=== PATIENT | female | born 1970 | race Caucasian/White ===

== ENCOUNTER 2018-06-29 18:17 | Inpatient (IN) | payer OTHER, SELFPAY ==
[2018-06-29 18:18] VITALS: BP 118/80; PULSE 87; RESP 14; TEMP 36.4; O2SAT 99; BMI 31.6
--- NOTE | 2018-06-29 18:43 | US_ITS ---
STUDY: VENOUS DOPPLER ULTRASOUND - BILATERAL LOWER EXTREMITIES REASON FOR EXAM: Female, 48 years old. Left posterior knee and calf pain and swelling. TECHNIQUE: Ultrasound evaluation of the deep vein system to include hsu-scale imaging and compression was performed. Hsu-scale imaging and Doppler sonographic evaluation, including duplex spectral analysis and qualitative color flow sonography, was performed. COMPARISON: None. FINDINGS: RIGHT LEG Common Femoral Vein: Normal compression, spontaneity and augmentation. Normal color Doppler. Common Femoral Vein/Greater Saphenous Junction: Normal compression, spontaneity and augmentation. Normal color Doppler. Deep Femoral Vein: Normal compression, spontaneity and augmentation. Normal color Doppler. Femoral Proximal: Normal compression, spontaneity and augmentation. Normal color Doppler. Femoral Middle: Normal compression, spontaneity and augmentation. Normal color Doppler. Femoral Distal: Normal compression, spontaneity and augmentation. Normal color Doppler. Popliteal Vein: Normal compression, spontaneity and augmentation. Normal color Doppler. Posterior Tibial Vein: Normal compression. Peroneal Vein: Normal compression. LEFT LEG Common Femoral Vein: Normal compression, spontaneity and augmentation. Normal color Doppler. Common Femoral Vein/Greater Saphenous Junction: Normal compression, spontaneity and augmentation. Normal color Doppler. Deep Femoral Vein: Normal compression, spontaneity and augmentation. Normal color Doppler. Femoral Proximal: Normal compression, spontaneity and augmentation. Normal color Doppler. Femoral Middle: Normal compression, spontaneity and augmentation. Normal color Doppler. Femoral Distal: Normal compression, spontaneity and augmentation. Normal color Doppler. Popliteal Vein: There is a echogenic noncompressible focus with no associated Doppler flow system with an underlying thrombus. Posterior Tibial Vein: There is an echogenic noncompressible focus consistent with underlying thrombus. Peroneal Vein: There is an echogenic noncompressible focus consistent with an underlying thrombus. The lesser saphenous vein is thrombosed as well. US/Venous Duplex Imag/Martín Extrem IMPRESSION: Thrombosed LEFT popliteal, posterior tibial, peroneal and lesser saphenous veins. Electronically Signed: Lauren Escobar MD at 19:44 EDT Tel , Service support ,
--- NOTE | 2018-06-29 19:36 | CT_ITS ---
STUDY: CTA CHEST REASON FOR EXAM: Female, 48 years old. Known blood clots. RADIATION DOSAGE (If Supplied By Facility): CTDIvol = ( 21.10 ) mGy, DLP = ( 727.74 ) mGycm TECHNIQUE: The examination was performed with the intravenous administration of 100 ml of Isovue 370 contrast material. Post-processing of the angiographic images was performed, with multiplanar reformation and 3D reconstruction. Individualized dose optimization techniques were used for this CT. COMPARISON: None. FINDINGS: There are filling defects within the left and right pulmonary arteries consistent with pulmonary emboli within appearance consistent with saddle emboli. The emboli extend into segmental and subsegmental arteries throughout the lungs. There is atherosclerotic calcification of the aortic arch . There is no demonstrated aortic dissection. Normal heart and pericardium. Normal mediastinum. Normal hilar regions. Normal visualized trachea and bronchi. There is a right pleural effusion associated with dependent consolidation within the right lower lobe. Normal chest wall structures. Normal osseous structures. The limited images of the upper abdomen demonstrate a right renal cyst. CT/CTA Chest W/WO Contrast IMPRESSION: Bilateral pulmonary emboli. Right pleural effusion associated with dependent consolidation within the right lower lobe. Right renal cyst. N.B. : The above information has been verbally conveyed by Lauren Escobar MD to Dr. León Bui MD, on 06/29/2018 21:31:34 (ET). Electronically Signed: Lauren Escobar MD at 21:32 EDT Tel , Service support ,
--- NOTE | 2018-06-29 19:55 | ED.VISSUMM ---
- ER Visit Summary Date of Service: 06/29/18 Chief Complaint: Left leg swelling History of Present Illness: The patient is a 48 F who about 1 month ago broke her left ankle. She has been in a boot orthosis has been seeing [facility] foot and ankle. She states that about a week ago she developed a lot of swelling in the leg. She notes that over the last weekend she had shortness of breath on the right side. She has no known history of clotting disorder. She denies any current chest pain or shortness of breath. She notes discomfort in the calf. Physical Examination: Afebrile vital signs are stable Gen: Well-nourished well-developed Head: Normocephalic atraumatic Eyes: Perrl EOMI ENT: TMs clear no rhinorrhea moist mucous membranes Neck: Supple no lymphadenopathy no JVD nontender CVS: Regular rate rhythm no murmurs normal S1-S2 Respiratory: No distress clear to auscultation bilaterally chest nontender Abdomen: Soft nontender nondistended normal bowel sounds no masses Back: Nontender Extremity: Left calf is swollen. Musculature is tender to palpation. I do not appreciate cords. Skin: Normal color no rash Neuro: alert orientated ?3 CN II-XII intact normal strength sensation reflexes gait cerebellar Psych: Normal affect normal mood Test Results: Duplex ultrasound is positive for DVT. CBC BMP troponin EKG were obtained and negative. CT [place] of the chest demonstrated a saddle pulmonary embolism. Emergency Department Course and Treatment: Patient is surprisingly asymptomatic probably due to flow around the clot. Plan is admission on a heparin drip echocardiogram. Impression: 1. Pulmonary embolism 2. Left leg DVT This note was generated with [employer] dictation software. It may contain incorrect words, spelling, and punctuation that were not noted in review of the chart prior to signing ED Disposition - Plan for ED Patient: Chief Complaint: Lower Extremity Injury Referrals: [facility] Doctor,Out of [Primary Care Provider] -
[2018-06-29 20:13] LABS: Absolute Lymphocyte Count 2.73 X10^3/ul (0.83-4.51); Absolute Neutrophil Count 5.3 X10^3/uL (2.0-7.7); Basophil# 0.02 X10^3/uL; Basophil% 0.2 % (0-1); Eosinophil# 0.23 X10^3/uL; Eosinophils% 2.6 % (0-5); Hematocrit 34.4 % (37-47); Hemoglobin 11.3 g/dl (12.0-15.0); Lymphocyte # 2.73 X10^3/ul (4.0); Lymphocyte % 30.4 % (19-41); Mean Corp Hgb Conc 32.8 g/gl (32-36); Mean Corpuscular Hgb 31.1 pg (27.0-32.0); Mean Corpuscular Volume 94.8 fL (81-99); Mean Platelet Vol. 8.9 fl (6.2-12.0); Monocyte# 0.73 X10^3/uL; Monocyte% 8.1 % (0-10); Neutrophil # 5.27 X10^3/uL (2.7-7.7); Neutrophil % 58.6 % (47-70); Platelet Count 345 K/mm3 (150-450); RBC Distribution Width CV 13.5 % (11.6-14.6); Red Blood Count 3.63 M/mm3 (4.2-5.4)
[2018-06-29 20:17] LABS: POSITIVE COUNT NO; POSITIVE DIFFERENTIAL NO; POSITIVE MORPHOLOGY NO
[2018-06-29 20:29] LABS: Anion Gap 4 (5-15); BUN 14 mg/dL (7-18); BUN/Creat Ratio 18.8 RATIO (10-20); Calcium,Total 8.9 mg/dL (8.5-10.1); Chloride 104 mmol/L (98-107); Creatinine, Serum 0.74 mg/dL (0.55-1.02); EST Glomerular Filtration Rate 89 mL/min (>60); Est Glom Filt Rate - Afr Amer 108 mL/min (>60); Estimated Creatinine Clearance 85.48 ml/min; Glucose 83 mg/dL (74-106); Potassium 4.3 mmol/L (3.5-5.1); Sodium Level 138 mmol/L (136-145)
--- NOTE | 2018-06-29 22:19 | EKG12_ITS ---
Test Reason : Blood Pressure : / mmHG Vent. Rate : 078 BPM Atrial Rate : 078 BPM P-R Int : 142 ms QRS Dur : 084 ms QT Int : 386 ms P-R-T Axes : 042 044 021 degrees QTc Int : 440 ms Normal sinus rhythm Normal ECG Confirmed by CYNTHIA VANESSA, SHORTY ([id number]), editorial cartoonist VIDA FAM ([id number]) on 07/03/2018 3:57:59 PM Referred By: SHAUN Confirmed By:SHORTY MARIE MD
--- NOTE | 2018-06-29 22:29 | PCM.HP.STD ---
Problem List (1) Bilateral pulmonary embolism Status: Acute (2) DVT (deep venous thrombosis) Status: Acute History of Present Illness Date of Admission: 06/29/18 Chief Complaint: LEG PAIN AND SHORTNESS OF BREATH The patient is a 48 year old F with a significant history of anxiety and depression; and who had left ankle and left leg fracture about a month ago and in orthotic boots and uses clutches; presenting with left calf pain and swelling that began about a week ago. Patient reported at rest she has no pain in her left ankle but with ambulation she has pain which she rates as 10 out of 10. Patient saw her orthopedic doctor today and she was advised to come to the emergency department since the orthopedic doctor was suspicious of a blood clot. Associated with her symptoms is episodic shortness of breath. She had multiple episodes shortness of breath a few days ago. At the time of my examination she did not have any shortness of breath. She reports pain in her chest with taking a deep breath. Venous Duplex at emergency department showed thrombosed left popliteal, posterior tibial, peroneal and lesser saphenous vein. CTA of the chest showed bilateral pulmonary emboli; with right pleural effusion associated with dependent consolidation within the right lower lobe; and right renal cyst. ED doctor consulted Dr. Abdullahi; composition molder and a decision was made to admit the patient and to start patient on anticoagulation. Per emergency department doctor Dr. Abdullahi composition molder is okay to be consulted further if need be. Past Medical History Allergies No Known Allergies Allergy (Verified 06/29/18 18:31) Home Medications: Ambulatory Orders Medication Instructions Recorded Sertraline HCl [Zoloft] 50 mg PO DAILY 06/29/18 traMADol [Ultram] 50 mg PO 4X/DAY PRN PRN 06/29/18 Surgical History: hysterectomy, tonsillectomy, - - Nose surgery Psychiatric History: Anxiety, Depression Lives: With Family Smoking Status: Never smoker Alcohol: Occasional - *Family History Maternal Family History: Family History (Last Updated 06/29/18 @ 23:17 by Luis A Marcos MD) Father Diabetes Aneurysm of gastric artery Heart problem Brother Heart problem Mother Thyroid disorder Review of Systems Constitutional: Denies: Chills, Fever, Weight Change HEENT: Denies: Head Aches, Sinus Congestion, Sinus Drainage Cardiovascular: Reports: Chest Pain - With deep breath. Denies: Palpitations Respiratory: Reports: Shortness of Breath. Denies: Cough, Shortness of breath at rest, Sputum production Gastrointestinal: Denies: Abdominal Pain, Nausea, Vomiting Genitourinary: Denies: Dysuria Musculoskeletal: Reports: Foot Pain - Left foot, Leg Pain - Left leg, Muscle pain - Left calf. Denies: Joint Pain, Joint Tenderness Skin: Denies: Rash, Wounds Neurological: Denies: Numbness, Tingling, Focal weakness Psychiatric: Denies: Anxiety, Depression, Homicidal Ideations, Suicidal Ideations Hematologic/ Lymphatic: Denies: Easy Bruising, Easy Bleeding VTE Information - Inpt Only VTE Present on Admission: Yes VTE Mechan Device Prophylaxis: None VTE Pharm Prophylaxis ordered?: No Reason prophylaxis not ordered:: Treatment Not Indicated - Started on treatment dose of anticoagulation Patient Problems: Active and Suspected Problems Bilateral pulmonary embolism (Acute) DVT (deep venous thrombosis) (Acute) - Physical Exam General: Alert, Oriented x3, Cooperative HEENT: Atraumatic, PERRLA, EOMI, Normocephalic Neck: Supple, No JVD, Negative Carotid Bruits Lungs: Clear to auscultation, Normal air movement Cardiovascular: Regular rate, No murmurs Abdomen: Bowel Sounds Present, Soft, Non Tender Extremities: Capillary Refill Less than 3 Seconds, Edema - Left leg, Tenderness - Left cough Skin: No rashes, No breakdown Musculoskeletal: No Tenderness to Palpation of Joints or Extremities Neurological: Cranial nerves II-XII grossly intact Psych/Mental Status: Normal Affect, Appropriate Vital Signs Temp Pulse Resp BP Pulse Ox 97.5 F L 87 14 118/80 99 06/29/18 18:18 06/29/18 18:18 06/29/18 18:18 06/29/18 18:18 06/29/18 18:18 Oxygen Delivery Method Room Air Weight: 86.183 kg Body Mass Index (BMI) 31.6 Laboratory Tests Past 24 Hrs 06/29/18 06/29/18 19:50 19:50 WBC 9.0 RBC 3.63 L Hgb 11.3 L Hct 34.4 L MCV 94.8 MCH 31.1 MCHC 32.8 RDW 13.5 RDW Differential 47.0 H Plt Count 345 MPV 8.9 Immature Gran % (Auto) 0.100 Neut % (Auto) 58.6 Lymph % (Auto) 30.4 Terry % (Auto) 8.1 Eos % (Auto) 2.6 Baso % (Auto) 0.2 Absolute Neuts (auto) 5.3 Absolute Lymphs (auto) 2.73 Total Counted Not Reportable Sodium 138 Potassium 4.3 Chloride 104 Carbon Dioxide 30.0 Anion Gap 4 L BUN 14 Creatinine 0.74 Estim Creat Clear Calc 85.48 Est GFR (MDRD) Af Amer 108 Est GFR (MDRD) Non-Af 89 BUN/Creatinine Ratio 18.8 Glucose 83 Calcium 8.9 Assessment/Plan All Active Problems Bilateral pulmonary embolism (Acute) DVT (deep venous thrombosis) (Acute) The patient is a 48 year old F with a significant history of anxiety and depression; and who had left ankle and left leg fracture about a month ago and in orthotic boots and uses clutches; presenting with left calf pain and swelling; and with episodic shortness of breath and pleuritic chest pain found to have radiographic evidence of bilateral PE; and multiple DVT and SVT in her left leg. Bilateral pulmonary embolism with DVT in multiple veins of left leg. Independent review of CT showed multiple bilateral PEs. Venous Dopplers with DVT in multiple veins of left leg. PESI score is 46; low risk of mortality. Emergency department doctor ordered heparin bolus with drip. We will continue heparin drip for now. Anticipate patient will be transitioned to direct oral anticoagulation next day and be discharged home. Echocardiogram not ordered because patient is hemodynamically stable. Home Tramadol continued. Anxiety with depression Home Zoloft continued. Renal cysts Independent review of CT showed right-sided renal cyst. Patient to follow-up outpatient Left ankle fracture and left fracture. Patient to continue left orthotic boots and clutches; and to follow up outpatient with orthopedic surgeon. DVT prophylaxis Not indicated in the setting of patient being started on treatment dose for thromboembolism. Code Visit OBSV E&M: 08795 Initial observation care L3
[2018-06-29] MEDS: HEPARIN/D5w 25,000 UNITS 25,000 UNITS/250 ML IV.SOLN. 12 UNITS IV (22:56)
[2018-06-29] MEDS: Heparin Injection (Vial) 5,000 UNIT/ML VIAL 6000 UNIT IV (22:56)
[2018-06-29 22:59] LABS: International Normalized Ratio 1.2; Prothrombin Time (Protime)PT. 14.7 SECONDS (11.7-14.9)
[2018-06-29 23:00] LABS: Partial Thromboplast Time 36.4 Seconds (24.1-36.2)
[2018-06-29 23:02] VITALS: BP 131/70; PULSE 87; RESP 18; O2SAT 98
[2018-06-29 23:06] LABS: AST(SGOT) 38 U/L (15-37); Alanine Aminotransfer ALT/SGPT 27 U/L (13-56); Albumin, Serum 3.1 g/dL (3.2-5.0); Alkaline Phosphatase 89 U/L (45-117); Bilirubin, Direct 0.08 mg/dL (0.00-0.30); Protein, Total 9.1 g/dL (6.4-8.2)
[2018-06-29 23:45] VITALS: BP 138/69; PULSE 83; RESP 16; TEMP 36.9; O2SAT 97
[2018-06-29 23:46] VITALS: BMI 31.0
[2018-06-29 23:58] VITALS: PULSE 80
[2018-06-30] VITALS (11 sets, daily range): BP systolic 107–142; BP diastolic 66–80; PULSE 68–88; RESP 16; TEMP 36.6–37.1; O2SAT 95–98; BMI 31.1
[2018-06-30 06:03] LABS: Absolute Lymphocyte Count 2.88 X10^3/ul (0.83-4.51); Basophil# 0.02 X10^3/uL; Basophil% 0.3 % (0-1); Eosinophil# 0.22 X10^3/uL; Eosinophils% 2.8 % (0-5); Hematocrit 32.7 % (37-47); Hemoglobin 10.7 g/dl (12.0-15.0); Lymphocyte # 2.88 X10^3/ul (4.0); Lymphocyte % 37.1 % (19-41); Mean Corp Hgb Conc 32.7 g/gl (32-36); Mean Corpuscular Volume 94.8 fL (81-99); Mean Platelet Vol. 8.7 fl (6.2-12.0); Monocyte# 0.63 X10^3/uL; Monocyte% 8.1 % (0-10); Neutrophil % 51.6 % (47-70); Platelet Count 344 K/mm3 (150-450); RBC Distribution Width CV 13.3 % (11.6-14.6); RBC Distribution Width SD 44.3 fl (35.1-43.9); Red Blood Count 3.45 M/mm3 (4.2-5.4); White Blood Count 7.8 K/mm3 (4.4-11.0)
[2018-06-30 06:04] LABS: POSITIVE COUNT NO; POSITIVE DIFFERENTIAL NO; POSITIVE MORPHOLOGY NO
[2018-06-30 06:09] LABS: Partial Thromboplast Time 106.8 Seconds (24.1-36.2)
[2018-06-30] MEDS: 0.9% NaCl Peripheral Flush Adult/Peds IV (06:13)
--- NOTE | 2018-06-30 07:51 | PCM.PROGNOTE ---
Patient Problems: Active and Suspected Problems Bilateral pulmonary embolism (Acute) DVT (deep venous thrombosis) (Acute) Subjective: Chief complaint: Follow-up after admission for acute bilateral pulmonary emboli/saddle embolism, acute left lower extremity DVT and probable right lower lobe community-acquired pneumonia. Patient seen and examined. No acute events overnight. She mentioned that her breathing is better, no more left leg pain. She does state that last weekend, she had an episode of right lateral chest pain and productive cough. She had a fracture of her left ankle and left fibula around a month ago that was treated with Aircast. Her vital signs are stable. - Physical Exam General: Alert, Oriented x3, Cooperative, No apparent distress HEENT: Atraumatic, PERRLA, EOMI, Normocephalic Oral: Moist Mucosa Neck: Supple, No JVD, Trachea Midline, Thyroid Normal Size and Texture Lungs: No rhonchi, No wheeze, No rales, Diminished, - - Decreased breath sounds at the right base, otherwise clear. Cardiovascular: Regular rate, Regular Rhythm, Normal S1, Normal S2, PMI Normal Abdomen: Bowel Sounds Present, Soft, Non Tender, Non-Distended, No Hepato-splenomegaly Extremities: No clubbing, No cyanosis, No edema, - - Left leg is swollen up to the left knee. Skin: No rashes, No breakdown Lymphatic: No Cervical, Supraclavicular, or Inguinal Adenopathy Neurological: Cranial nerves II-XII grossly intact, Motor Exam 5/5 strength throughout Psych/Mental Status: Normal Affect, Appropriate, Alert and oriented to time, place, person, mood and affect Vital Signs Temp Pulse Resp BP Pulse Ox 97.8 F 68 16 107/66 96 06/30/18 05:45 06/30/18 07:15 06/30/18 05:45 06/30/18 05:45 06/30/18 06:40 Oxygen Delivery Method Room Air Weight: 186 lb 11.704 oz Body Mass Index (BMI) 31.0 Intake and Output for Last 24 Hours 06/28/18 06/29/18 06/30/18 23:59 23:59 23:59 Intake Total 278.9 / 278.9 Balance 278.9 / 278.9 Laboratory Tests Past 24 Hrs 06/29/18 06/29/18 06/29/18 19:50 19:50 19:50 WBC 9.0 RBC 3.63 L Hgb 11.3 L Hct 34.4 L MCV 94.8 MCH 31.1 MCHC 32.8 RDW 13.5 RDW Differential 47.0 H Plt Count 345 MPV 8.9 Immature Gran % (Auto) 0.100 Neut % (Auto) 58.6 Lymph % (Auto) 30.4 [place] % (Auto) 8.1 Eos % (Auto) 2.6 Baso % (Auto) 0.2 Absolute Neuts (auto) 5.3 Absolute Lymphs (auto) 2.73 Total Counted Not Reportable PT INR APTT Sodium 138 Potassium 4.3 Chloride 104 Carbon Dioxide 30.0 Anion Gap 4 L BUN 14 Creatinine 0.74 Estim Creat Clear Calc 85.48 Est GFR (MDRD) Af Amer 108 Est GFR (MDRD) Non-Af 89 BUN/Creatinine Ratio 18.8 Glucose 83 Calcium 8.9 Total Bilirubin 0.40 Direct Bilirubin 0.08 AST 38 H ALT 27 Alkaline Phosphatase 89 Total Protein 9.1 H Albumin 3.1 L Globulin 6.0 H 06/29/18 06/30/18 06/30/18 22:40 05:05 05:05 WBC 7.8 RBC 3.45 L Hgb 10.7 L Hct 32.7 L MCV 94.8 MCH 31.0 MCHC 32.7 RDW 13.3 RDW Differential 44.3 H Plt Count 344 MPV 8.7 Immature Gran % (Auto) 0.100 Neut % (Auto) 51.6 Lymph % (Auto) 37.1 [place] % (Auto) 8.1 Eos % (Auto) 2.8 Baso % (Auto) 0.3 Absolute Neuts (auto) 4.0 Absolute Lymphs (auto) 2.88 Total Counted Not Reportable PT 14.7 INR 1.2 APTT 36.4 H 106.8 H* Sodium Potassium Chloride Carbon Dioxide Anion Gap BUN Creatinine Estim Creat Clear Calc Est GFR (MDRD) Af Amer Est GFR (MDRD) Non-Af BUN/Creatinine Ratio Glucose Calcium Total Bilirubin Direct Bilirubin AST ALT Alkaline Phosphatase Total Protein Albumin Globulin Clinical Impression(s) from Imaging Studies Venous Duplex 06/29/18 18:43 IMPRESSION: Thrombosed LEFT popliteal, posterior tibial, peroneal and lesser saphenous veins. Electronically Signed: Lauren Escobar MD at 19:44 EDT Tel , Service support , Chest CTA 06/29/18 19:36 IMPRESSION: Bilateral pulmonary emboli. Right pleural effusion associated with dependent consolidation within the right lower lobe. Right renal cyst. N.B. : The above information has been verbally conveyed by Lauren Escobar MD to Dr. León Bui MD, on 06/29/2018 21:31:34 (ET). Electronically Signed: Lauren Escobar MD at 21:32 EDT Tel , Service support , Medical Necessity - Tobacco Use Smoking Status: Never smoker Assessment/Plan All Active Problems Bilateral pulmonary embolism (Acute) DVT (deep venous thrombosis) (Acute) This is a 48 years old female patient presented to the emergency room because of left leg swelling and shortness of breath and she was found to have acute bilateral pulmonary emboli with saddle embolism as well as extensive acute DVT of the left lower extremity and probable right lower lobe community-acquired pneumonia. #1 acute multiple bilateral pulmonary emboli/saddle embolism: This is considered provoked because she had recent history of left ankle/left fibula fracture and she has been nonweightbearing to the left leg. She denied personal or family history of clotting disorders. She is on IV heparin drip. No indication for hypercoagulable workup. Her vital signs are stable. Her routine blood work was remarkable for hemoglobin of 10.7 g/dL, otherwise normal. CTA chest reviewed. Plan: Continue IV heparin drip, start oral Xarelto tomorrow morning after discontinue IV heparin drip, repeat CBC and INR tomorrow morning. #2 acute left lower extremity DVT: Again, she is on IV heparin drip and this is provoked with because of left ankle/left tibial fracture. Plan as above. #3 probable right lower lobe community-acquired pneumonia: CTA chest revealed small right pleural effusion and probable consolidation. Patient reported cough with some colored sputum. Denies fever chills. She has no leukocytosis, afebrile. Plan to start IV Levaquin empiric. #4 recent history of left ankle/left fibular fracture: Tylenol as needed for pain, Aircast. #5 anxiety/depression: Continue Zoloft. #6 DVT prophylaxis: She is on IV heparin drip. This note was generated with [employer] dictation software. It may contain incorrect words, spelling, and punctuation that were not noted in checking the note before signing. Code Visit Inpatient E&M: 10624 Subs Hosp L2
--- NOTE | 2018-06-30 07:57 | PN_ITS ---
Patient Problems: Active and Suspected Problems Bilateral pulmonary embolism (Acute) DVT (deep venous thrombosis) (Acute) Subjective: Chief complaint: Follow-up after admission for acute bilateral pulmonary emboli/saddle embolism, acute left lower extremity DVT and probable right lower lobe community-acquired pneumonia. Patient seen and examined. No acute events overnight. She mentioned that her breathing is better, no more left leg pain. She does state that last weekend, she had an episode of right lateral chest pain and productive cough. She had a fracture of her left ankle and left fibula around a month ago that was treated with Aircast. Her vital signs are stable. - Physical Exam General: Alert, Oriented x3, Cooperative, No apparent distress HEENT: Atraumatic, PERRLA, EOMI, Normocephalic Oral: Moist Mucosa Neck: Supple, No JVD, Trachea Midline, Thyroid Normal Size and Texture Lungs: No rhonchi, No wheeze, No rales, Diminished, - - Decreased breath sounds at the right base, otherwise clear. Cardiovascular: Regular rate, Regular Rhythm, Normal S1, Normal S2, PMI Normal Abdomen: Bowel Sounds Present, Soft, Non Tender, Non-Distended, No Hepato- splenomegaly Extremities: No clubbing, No cyanosis, No edema, - - Left leg is swollen up to the left knee. Skin: No rashes, No breakdown Lymphatic: No Cervical, Supraclavicular, or Inguinal Adenopathy Neurological: Cranial nerves II-XII grossly intact, Motor Exam 5/5 strength throughout Psych/Mental Status: Normal Affect, Appropriate, Alert and oriented to time, place, person, mood and affect Vital Signs Temp Pulse Resp BP Pulse Ox 97.8 F 68 16 107/66 96 06/30/18 05:45 06/30/18 07:15 06/30/18 05:45 06/30/18 05:45 06/30/18 06:40 Oxygen Delivery Method Room Air Weight: 186 lb 11.704 oz Body Mass Index (BMI) 31.0 Intake and Output for Last 24 Hours 06/28/18 06/29/18 06/30/18 23:59 23:59 23:59 Intake Total 278.9 / 278.9 Balance 278.9 / 278.9 Laboratory Tests Past 24 Hrs 06/29/18 06/29/18 06/29/18 19:50 19:50 19:50 WBC 9.0 RBC 3.63 L Hgb 11.3 L Hct 34.4 L MCV 94.8 MCH 31.1 MCHC 32.8 RDW 13.5 RDW Differential 47.0 H Plt Count 345 MPV 8.9 Immature Gran % (Auto) 0.100 Neut % (Auto) 58.6 Lymph % (Auto) 30.4 Dawes % (Auto) 8.1 Eos % (Auto) 2.6 Baso % (Auto) 0.2 Absolute Neuts (auto) 5.3 Absolute Lymphs (auto) 2.73 Total Counted Not Reportable PT INR APTT Sodium 138 Potassium 4.3 Chloride 104 Carbon Dioxide 30.0 Anion Gap 4 L BUN 14 Creatinine 0.74 Estim Creat Clear Calc 85.48 Est GFR (MDRD) Af Amer 108 Est GFR (MDRD) Non-Af 89 BUN/Creatinine Ratio 18.8 Glucose 83 Calcium 8.9 Total Bilirubin 0.40 Direct Bilirubin 0.08 AST 38 H ALT 27 Alkaline Phosphatase 89 Total Protein 9.1 H Albumin 3.1 L Globulin 6.0 H 06/29/18 06/30/18 06/30/18 22:40 05:05 05:05 WBC 7.8 RBC 3.45 L Hgb 10.7 L Hct 32.7 L MCV 94.8 MCH 31.0 MCHC 32.7 RDW 13.3 RDW Differential 44.3 H Plt Count 344 MPV 8.7 Immature Gran % (Auto) 0.100 Neut % (Auto) 51.6 Lymph % (Auto) 37.1 Dawes % (Auto) 8.1 Eos % (Auto) 2.8 Baso % (Auto) 0.3 Absolute Neuts (auto) 4.0 Absolute Lymphs (auto) 2.88 Total Counted Not Reportable PT 14.7 INR 1.2 APTT 36.4 H 106.8 H* Sodium Potassium Chloride Carbon Dioxide Anion Gap BUN Creatinine Estim Creat Clear Calc Est GFR (MDRD) Af Amer Est GFR (MDRD) Non-Af BUN/Creatinine Ratio Glucose Calcium Total Bilirubin Direct Bilirubin AST ALT Alkaline Phosphatase Total Protein Albumin Globulin Clinical Impression(s) from Imaging Studies Venous Duplex 06/29/18 18:43 IMPRESSION: Thrombosed LEFT popliteal, posterior tibial, peroneal and lesser saphenous veins. Electronically Signed: Lauren Escobar MD at 19:44 EDT Tel , Service support , Chest CTA 06/29/18 19:36 IMPRESSION: Bilateral pulmonary emboli. Right pleural effusion associated with dependent consolidation within the right lower lobe. Right renal cyst. N.B. : The above information has been verbally conveyed by Lauren Escobar MD to Dr. León Bui MD, on 06/29/2018 21:31:34 (ET). Electronically Signed: Lauren Escobar MD at 21:32 EDT Tel , Service support , Medical Necessity - Tobacco Use Smoking Status: Never smoker Assessment/Plan All Active Problems Bilateral pulmonary embolism (Acute) DVT (deep venous thrombosis) (Acute) This is a 48 years old female patient presented to the emergency room because of left leg swelling and shortness of breath and she was found to have acute bilateral pulmonary emboli with saddle embolism as well as extensive acute DVT of the left lower extremity and probable right lower lobe community-acquired pneumonia. #1 acute multiple bilateral pulmonary emboli/saddle embolism: This is considered provoked because she had recent history of left ankle/left fibula fracture and she has been nonweightbearing to the left leg. She denied personal or family history of clotting disorders. She is on IV heparin drip. No indication for hypercoagulable workup. Her vital signs are stable. Her routine blood work was remarkable for hemoglobin of 10.7 g/dL, otherwise normal. CTA chest reviewed. Plan: Continue IV heparin drip, start oral Xarelto tomorrow morning after discontinue IV heparin drip, repeat CBC and INR tomorrow morning. #2 acute left lower extremity DVT: Again, she is on IV heparin drip and this is provoked with because of left ankle/left tibial fracture. Plan as above. #3 probable right lower lobe community-acquired pneumonia: CTA chest revealed small right pleural effusion and probable consolidation. Patient reported cough with some colored sputum. Denies fever chills. She has no leukocytosis, afebrile. Plan to start IV Levaquin empiric. #4 recent history of left ankle/left fibular fracture: Tylenol as needed for pain, Aircast. #5 anxiety/depression: Continue Zoloft. #6 DVT prophylaxis: She is on IV heparin drip. This note was generated with Bizo dictation software. It may contain incorrect words, spelling, and punctuation that were not noted in checking the note before signing. Code Visit Inpatient E&M: 01210 Subs Hosp L2
[2018-06-30] MEDS: Sertraline 50 MG Tablet PO (08:43)
--- NOTE | 2018-06-30 10:17 | CASEMGMT ---
ATTILA JONES assessment: Face to Face with patient for initial transition planning/care coordination assessment. ATTILA JONES introduced self and role at [facility], pt voices understanding and consents to assessment at this time. Pt is sitting up in bed in no distress at this time. Pt is A/Ox4 at this time and consents to assessment at this time. Care providers, pharmacy, and demographics verified/updated at this time. PCP: Zoie Specialists: Matt Witt Pharmacy: [facility] Insurance: [id number] Prescription Benefit: [id number] Living Will/HPOA: Pt states does not have LW/HPOA but is interested in completing AD info at this time. Mackenzie SW aware at this time, voices understanding. LNOK: Jayne Ricketts, mother; Taco Foley, son Living Arrangements: Pt states lives with son in a home and states no concerns at home at this time. Transportation: Pt states drives self and states no transportation concerns at this time. DME/HHC: Pt states has crutches and a walking boot for the recent left ankle fx and states no need for any further DME at this time. Pt states no hx of HHC or SNF. Pt states no concerns with going home at time of discharge. Pt states does not smoke and drinks ETOH occasionally. Per Dr. Xavier, pt to be sent home on [facility] and script sent to [facility] previously. This ATTILA JONES will call to check co-pay and update pt at that time. Pt voices no further concerns/needs at this time. Advised pt to ask for CM if any further questions/concerns/needs arise, voices understanding. PLAN: Home [place] ATTILA JONES
--- NOTE | 2018-06-30 11:19 | CASEMGMT ---
Addendum entered by Carmen Singh 06/30/18 13:20: SW assisted pt in completing LW/POA forms, copies on chart and SW gave pt originals and copies for family members. YRN Chandra, FINISHED CLOTH EXAMINER Original Note: SW spoke w/pt regarding LW/POA. Pt is interested in completing LW/POA, but asked if SW can come back later today to complete the forms. SW explained will try to come back later to assist pt in completing the forms. YRN Chandra, FINISHED CLOTH EXAMINER
[2018-06-30 12:30] LABS: Partial Thromboplast Time 47.3 Seconds (24.1-36.2)
[2018-06-30] MEDS: Heparin Injection (Vial) 5,000 UNIT/ML VIAL IV (12:59)
--- NOTE | 2018-06-30 13:58 | CASEMGMT ---
Call to [facility] and per pharmacist, pt's co-pay is $576 for the 1st script and $400-some dollars for the 2nd script. This RN CM verified insurance with the pharmacy at this time. $10 co-pay card provided to pt to activate and then card information provided to [facility] and per pharmacist, pt's co-pay is now $10. Pt updated on all and thanks this ATTILA JONES at this time. Pt voices no further concerns/needs at this time. [place] ATTILA JONES
[2018-06-30] MEDS: levoFLOXacin 750 MG Tablet PO (15:50)
--- NOTE | 2018-06-30 17:01 | CHAPLAIN ---
three attempts made today to visit this patient; pt was occupied each time;
[2018-06-30 19:21] LABS: Partial Thromboplast Time 58.6 Seconds (24.1-36.2)
[2018-06-30] MEDS: traMADol 50 MG Tablet PO (20:04)
[2018-07-01] MEDS: HEPARIN/D5w 25,000 UNITS 25,000 UNITS/250 ML IV.SOLN. 12 UNITS IV (00:17)
[2018-07-01 00:21] VITALS: BP 122/67; PULSE 72; RESP 16; TEMP 36.7; O2SAT 98
[2018-07-01] MEDS: LORazepam 1 MG Tablet PO (00:31)
[2018-07-01 03:00] VITALS: PULSE 67
[2018-07-01 06:09] VITALS: BP 113/60; PULSE 65; RESP 16; TEMP 36.8; O2SAT 99
[2018-07-01] MEDS: levoFLOXacin 750 MG Tablet PO (06:10)
[2018-07-01 07:00] LABS: International Normalized Ratio 1.2; Prothrombin Time (Protime)PT. 15.6 SECONDS (11.7-14.9)
[2018-07-01 07:01] LABS: Partial Thromboplast Time 64.3 Seconds (24.1-36.2)
[2018-07-01 07:05] LABS: Absolute Lymphocyte Count 2.91 X10^3/ul (0.83-4.51); Absolute Neutrophil Count 3.6 X10^3/uL (2.0-7.7); Basophil# 0.02 X10^3/uL; Basophil% 0.3 % (0-1); Eosinophil# 0.22 X10^3/uL; Hematocrit 33.4 % (37-47); Hemoglobin 10.9 g/dl (12.0-15.0); Lymphocyte # 2.91 X10^3/ul (4.0); Lymphocyte % 39.4 % (19-41); Mean Corp Hgb Conc 32.6 g/gl (32-36); Mean Corpuscular Hgb 31.2 pg (27.0-32.0); Mean Corpuscular Volume 95.7 fL (81-99); Mean Platelet Vol. 8.8 fl (6.2-12.0); Monocyte% 8.1 % (0-10); Neutrophil # 3.63 X10^3/uL (2.7-7.7); Neutrophil % 49.1 % (47-70); Platelet Count 346 K/mm3 (150-450); RBC Distribution Width CV 13.3 % (11.6-14.6); RBC Distribution Width SD 44.7 fl (35.1-43.9); Red Blood Count 3.49 M/mm3 (4.2-5.4); White Blood Count 7.4 K/mm3 (4.4-11.0)
[2018-07-01 07:07] LABS: POSITIVE COUNT NO; POSITIVE DIFFERENTIAL NO; POSITIVE MORPHOLOGY NO
[2018-07-01 07:15] VITALS: PULSE 67
[2018-07-01 07:30] VITALS: O2SAT 96
[2018-07-01 09:41] VITALS: BP 108/70; PULSE 80; RESP 18; TEMP 36.5; O2SAT 99
--- NOTE | 2018-07-01 09:43 | DCINST_ITS ---
- Discharge Diagnoses Current Active Problems: Current Active and Chronic Problems Bilateral pulmonary embolism (Acute) DVT (deep venous thrombosis) (Acute) You will use the following diet at home:: Regular Your food should be the consistency of: Regular Discharge Activity: Return to Normal Activity Weight Bearing Status: Weight bearing as tolerated Call your doctor if you observe: Fever of 101 or Higher, Shortness of breath, Dizziness, Fainting spells, Chest pain, Increased palpitations (irregular heartbeat), Uncontrolled pain Instructions: Discharge Instructions for Pulmonary Embolism, Discharge Instructions for Deep Vein Thrombosis Allergies/Adverse Reactions: Allergies No Known Allergies Allergy (Verified 06/29/18 18:31) Medications to take at Discharge Sertraline HCl [Zoloft] 50 mg PO DAILY 06/29/18 traMADol [Ultram] 50 mg PO 4X/DAY PRN PRN 06/29/18 Rivaroxaban [Xarelto] 15 mg PO BID #42 tab 06/30/18 Rivaroxaban [Xarelto] 20 mg PO DAILY #90 tab 06/30/18 levoFLOXacin tablet [Levaquin tablet] 750 mg PO DAILY@0600 #5 tab 07/01/18 The following prescriptions were given: levoFLOXacin tablet [Levaquin tablet] 750 mg PO DAILY@0600 #5 tab Rivaroxaban [Xarelto] 20 mg PO DAILY #90 tab Rivaroxaban [Xarelto] 15 mg PO BID #42 tab Primary Care Physician: Lori Luna,Out of [Primary Care Provider] - Please follow up with your Primary Care Physician in: 1 week. Test Results: Test results from this visit will be discussed in further detail at your follow- up appointment, if applicable.
[2018-07-01] MEDS: Sertraline 50 MG Tablet PO (09:44)
[2018-07-01] MEDS: Rivaroxaban 15 MG Tablet PO (09:44)
[2018-07-01] MEDS: Acetaminophen 325 MG Tablet 650 MG PO (09:47)
--- NOTE | 2018-07-01 12:32 | PCM.DC.SUM ---
Discharge Date and Diagnosis Date of Admission: 06/29/18 Date of Discharge: 07/01/18 - Primary Discharge Diagnosis #1 acute multiple bilateral pulmonary emboli/saddle embolism. #2 acute left lower extremity DVT. #3 probable right lower lobe community-acquired pneumonia. #4 recent history of left ankle/left fibular fracture. Hospital Course and Treatment Imaging Results: Clinical Impression(s) from Imaging Studies Venous Duplex 06/29/18 18:43 IMPRESSION: Thrombosed LEFT popliteal, posterior tibial, peroneal and lesser saphenous veins. Electronically Signed: Lauren Escobar MD at 19:44 EDT Tel , Service support , Chest CTA 06/29/18 19:36 IMPRESSION: Bilateral pulmonary emboli. Right pleural effusion associated with dependent consolidation within the right lower lobe. Right renal cyst. N.B. : The above information has been verbally conveyed by Lauren Escobar MD to Dr. León Bui MD, on 06/29/2018 21:31:34 (ET). Electronically Signed: Lauren Escobar MD at 21:32 EDT Tel , Service support , Operations: None Procedures: None Summary of Care Provided: Patient seen and examined on the day of discharge and appeared to be stable to be discharged home. She has no complaints. Her vital signs are stable, respiratory status remains stable. The patient is a 48 year old F admitted because of left leg swelling and shortness of breath and she was found to have acute bilateral pulmonary emboli with saddle embolism as well as extensive acute DVT of the left lower extremity. The patient had a history of left ankle/left fibular fracture around 3 weeks ago that was treated conservatively with Aircast and pain control. She has been not ambulating adequately over the last 3 weeks. This event of PE and DVT considered provoked secondary to recent fracture and limited mobility. CTA chest revealed bilateral pulmonary emboli with saddle embolism as well as right lower lobe consolidation and small pleural effusion. Patient complained of mild cough with minimal sputum few days before admission. She denies fever chills. She remained afebrile throughout admission and her white blood cell count was normal. She was treated empirically with Levaquin for probable pneumonia. Venous Doppler of the left leg revealed acute DVT of the left popliteal, posterior tibial, peroneal and lesser saphenous veins. She was treated with IV heparin drip. Although she had sudden embolism, her respiratory status remains very stable. There was no tachycardia and her pulse ox were normal throughout admission on room air. She did not require any oxygen. Her routine blood work was remarkable for chronic anemia, otherwise normal. On day of discharge, IV heparin drip discontinued and patient was started immediately on Xarelto. Patient discharged home in a stable medical condition, discharged on Xarelto 15 mg p.o. twice daily for 21 days, requested to start 20 mg p.o. daily of Xarelto after the 21 days, discharged on 5 days of Levaquin for probable pneumonia, recommended for follow-up with her orthopedic surgeon regarding the left ankle fracture, follow-up with PCP in 1 week. Education regarding Xarelto side effects discussed with the patient. - Physical Exam General: Alert, Oriented x3, Cooperative, No apparent distress HEENT: Atraumatic, PERRLA, EOMI, Normocephalic Oral: Moist Mucosa, No Gingival or Mucosal Lesions/ Ulcerations Neck: Supple, No JVD, Negative Carotid Bruits, Trachea Midline, Thyroid Normal Size and Texture Lungs: Clear to auscultation, Normal air movement, No rhonchi, No wheeze, No rales Cardiovascular: Regular rate, Regular Rhythm, Normal S1, Normal S2, PMI Normal Abdomen: Bowel Sounds Present, Soft, Non Tender, Non-Distended, No Hepato-splenomegaly Extremities: No clubbing, No cyanosis, - - Left leg is swollen. Skin: No rashes, No breakdown Lymphatic: No Cervical, Supraclavicular, or Inguinal Adenopathy Neurological: Cranial nerves II-XII grossly intact, Neuro grossly intact Psych/Mental Status: Normal Affect, Appropriate, Alert and oriented to time, place, person, mood and affect Vital Signs Temp Pulse Resp BP Pulse Ox 97.7 F L 80 18 108/70 99 07/01/18 09:41 07/01/18 09:41 07/01/18 09:41 07/01/18 09:41 07/01/18 09:41 Oxygen Delivery Method Room Air Weight: 186 lb 11.704 oz Body Mass Index (BMI) 31.0 Intake and Output for Last 24 Hours 06/29/18 06/30/18 07/01/18 23:59 23:59 23:59 Intake Total 631.9 / 631.9 802 / 802 Balance 631.9 / 631.9 802 / 802 Laboratory Tests Past 24 Hrs 06/30/18 07/01/18 07/01/18 19:00 06:30 06:30 WBC 7.4 RBC 3.49 L Hgb 10.9 L Hct 33.4 L MCV 95.7 MCH 31.2 MCHC 32.6 RDW 13.3 RDW Differential 44.7 H Plt Count 346 MPV 8.8 Immature Gran % (Auto) 0.100 Neut % (Auto) 49.1 Lymph % (Auto) 39.4 [place] % (Auto) 8.1 Eos % (Auto) 3.0 Baso % (Auto) 0.3 Absolute Neuts (auto) 3.6 Absolute Lymphs (auto) 2.91 Total Counted Not Reportable PT 15.6 H INR 1.2 APTT 58.6 H 64.3 H Discharge Activity: Return to Normal Activity Weight Bearing Status: Weight bearing as tolerated Call your doctor if you observe: Fever of 101 or Higher, Shortness of breath, Dizziness, Fainting spells, Chest pain, Increased palpitations (irregular heartbeat), Uncontrolled pain Home Medications: Medications to take at Discharge Sertraline HCl [Zoloft] 50 mg PO DAILY 06/29/18 traMADol [Ultram] 50 mg PO 4X/DAY PRN PRN 06/29/18 Rivaroxaban [Xarelto] 15 mg PO BID #42 tab 06/30/18 Rivaroxaban [Xarelto] 20 mg PO DAILY #90 tab 06/30/18 levoFLOXacin tablet [Levaquin tablet] 750 mg PO DAILY@0600 #5 tab 07/01/18 Following Prescrptions Were Given to Patient: levoFLOXacin tablet [Levaquin tablet] 750 mg PO DAILY@0600 #5 tab Rivaroxaban [Xarelto] 20 mg PO DAILY #90 tab Rivaroxaban [Xarelto] 15 mg PO BID #42 tab Primary Care Physician: [facility] ,Out of [Primary Care Provider] - Please follow up with your Primary Care Physician in: 1 week. Patient Instructions: Discharge Instructions for Deep Vein Thrombosis, Discharge Instructions for Pulmonary Embolism Medical Necessity - Tobacco Use Smoking Status: Never smoker Meaningful Use Info Meaningful Use Diagnoses (Choose all that apply): None applicable Code Visit Inpatient E&M: 30850 Disch Hosp
== END 2018-07-01 11:04 | disposition home or self-care (01) | DRG 175 ==
LOC: ED 23:06 → PCU 23:18
PROVIDERS: Admitting Provider Hospitalist; Emergency Provider Emergency Medicine; Visit Provider Hospitalist
DX: I26.92 Saddle embolus of pulmonary artery without acute cor pulmonale (principal); J18.9 Pneumonia, unspecified organism; I82.432 Acute embolism and thrombosis of left popliteal vein; I82.442 Acute embolism and thrombosis of left tibial vein; I82.4Z2 Acute embolism and thrombosis of unspecified deep veins of left distal lower extremity; F41.8 Other specified anxiety disorders; N28.1 Cyst of kidney, acquired; S82.892D Other fracture of left lower leg, subsequent encounter for closed fracture with routine healing
CPT/HCPCS: 36415; 71275; 80048; 80076; 85025; 85610; 85730; 93005; 93970; 97161; 99285; Q9967; A4216

== ENCOUNTER 2018-07-03 23:08 | Emergency (ER) | payer OTHER, SELFPAY ==
[2018-07-03 23:09] VITALS: BP 153/101; PULSE 77; RESP 16; TEMP 35.9; O2SAT 98; BMI 33.4
[2018-07-03 23:25] VITALS: O2SAT 98
--- NOTE | 2018-07-04 00:01 | EKG12_ITS ---
Test Reason : Blood Pressure : / mmHG Vent. Rate : 071 BPM Atrial Rate : 071 BPM P-R Int : 158 ms QRS Dur : 088 ms QT Int : 416 ms P-R-T Axes : 049 041 034 degrees QTc Int : 452 ms Normal sinus rhythm Normal ECG Confirmed by CYNTHIA VANESAS, SHORTY ([id number]), editorial director VIDA FAM ([id number]) on 07/06/2018 3:26:36 PM Referred By: KANDY Confirmed By:SHORTY MARIE MD
--- NOTE | 2018-07-04 00:01 | RAD_ITS ---
STUDY: X-RAY CHEST REASON FOR EXAM: Female, 48 years old. Shortness of breath. History of recent DVT and multiple pulmonary emboli. TECHNIQUE: AP portable chest. COMPARISON: None. FINDINGS: The lungs are clear and expanded. There is no demonstrated pleural abnormality. Normal size heart. Normal mediastinum and joshua. Normal visualized pulmonary arteries. Normal visualized aortic arch and descending thoracic aorta. Normal visualized thoracic spine. Normal visualized ribs, clavicles, and shoulders. There is no demonstrated abnormality of the visualized soft tissue structures of the upper abdomen. RAD/Chest 1 View (Portable) IMPRESSION: Normal x-ray examination of the chest. Electronically Signed: Aldo Levi MD at 0:38 EST , Service support ,
[2018-07-04 00:35] LABS: Absolute Lymphocyte Count 2.96 X10^3/ul (0.83-4.51); Basophil# 0.02 X10^3/uL; Basophil% 0.3 % (0-1); Eosinophil# 0.24 X10^3/uL; Hematocrit 33.3 % (37-47); Lymphocyte # 2.96 X10^3/ul (4.0); Lymphocyte % 37.6 % (19-41); Mean Corpuscular Hgb 31.7 pg (27.0-32.0); Mean Platelet Vol. 8.6 fl (6.2-12.0); Monocyte# 0.66 X10^3/uL; Monocyte% 8.4 % (0-10); Neutrophil # 3.98 X10^3/uL (2.7-7.7); Neutrophil % 50.4 % (47-70); Platelet Count 365 K/mm3 (150-450); RBC Distribution Width CV 13.6 % (11.6-14.6); RBC Distribution Width SD 44.8 fl (35.1-43.9); Red Blood Count 3.47 M/mm3 (4.2-5.4); White Blood Count 7.9 K/mm3 (4.4-11.0)
[2018-07-04 00:36] LABS: POSITIVE COUNT NO; POSITIVE DIFFERENTIAL NO; POSITIVE MORPHOLOGY NO
[2018-07-04 01:08] LABS: BNP,B-Type NATRIURETIC PEPTIDE 13.3 pg/mL (0-100)
[2018-07-04 01:24] LABS: International Normalized Ratio 2.6
[2018-07-04 01:25] LABS: Partial Thromboplast Time 50.1 Seconds (24.1-36.2)
[2018-07-04 01:29] LABS: Anion Gap 6 (5-15); BUN 14 mg/dL (7-18); BUN/Creat Ratio 17.3 RATIO (10-20); Calcium,Total 8.9 mg/dL (8.5-10.1); Chloride 103 mmol/L (98-107); Creatinine, Serum 0.81 mg/dL (0.55-1.02); EST Glomerular Filtration Rate 81 mL/min (>60); Est Glom Filt Rate - Afr Amer 98 mL/min (>60); Estimated Creatinine Clearance 78.09 ml/min; Glucose 89 mg/dL (74-106); Potassium 3.7 mmol/L (3.5-5.1); Sodium Level 139 mmol/L (136-145)
--- NOTE | 2018-07-04 01:59 | ED.VISSUMM ---
- ER Visit Summary Date of Service: 07/04/18 Chief Complaint: Chest pain History of Present Illness: The patient is a 48 F presenting for evaluation secondary chest pain. Patient reports that on last week she was diagnosed as having bilateral PEs and was admitted to the hospital. She was in the hospital until Tuesday at which point she was discharged. Patient states that she has been taking her Xarelto, but notes that she started to feel somewhat short of breath and then today at about 1500 she started to notice that she was getting some sharp intermittent chest pain. Pain is worse with taking deep breath. She denies any presence of fevers. Patient states that she was also noted to have a concomitant pneumonia on her imaging when she was in the hospital and has gone home on Levaquin. Patient states that she has been religiously taking her medications and has not missed any doses. Physical Examination: Vital signs are within normal limits, patient is afebrile. General: Patient is well-nourished well-developed and in no acute distress. Head: Normocephalic, atraumatic Eyes: Pupils equal round and reactive bilaterally, extra occular motion intact bialterally ENT: Moist mucous membranes Neck: Supple, no lymphadenopathy, no JVD, no meningismus CVS: Heart regular rate and rhythm, no murmurs, rubs or gallops, radial pulses 2+ bilaterally Resp: Respirations nondistressed, lung sounds clear bilaterally Abdomen: Soft, nontender, nondistended, no palpable masses, normal bowel sounds Back: Nontender Extremities: Nontender, atraumatic, active full range of motion, no peripheral edema, left leg is in a walking boot Skin: warm, no rashes, no petechia Neuro: Alert and oriented x 4, CN 2-12 intact, no lateralizing neurological defecits Psyc: Normal affect Test Results: EKG demonstrates sinus rhythm at 71 no evidence of right ventricular strain, isoelectric ST segments normal T waves. CBC chemistry troponin unremarkable. Chest x-ray also unremarkable. Emergency Department Course and Treatment: Patient presented for evaluation secondary to chest pain in the setting of a known PE. Patient's workup was negative as noted above. I did review her records, she had bilateral PEs on a CT angiogram. This point patient has no evidence of heart strain, no evidence of heart failure, no evidence of worsening infiltrates and has stable vital signs I do not believe that repeat CT imaging is indicated. Patient was informed that her symptoms likely are secondary to her PEs, but she needs to continue taking her medications and she did not require admission at this point. Disposition: Discharge Impression: 1. Chest pain 2. History of bilateral pulmonary emboli This note was generated with [employer] dictation software. It may contain incorrect words, spelling, and punctuation that were not noted in review of the chart prior to signing ED Disposition - Plan for ED Patient: Disposition: Home or Assisted Living Chief Complaint: Shortness of Breath Diagnosis: Chest pain, Bilateral pulmonary embolism Instructions: Pulmonary Embolism Referrals: [facility] Doctor,Out of [Primary Care Provider] - 5-7 Days
[2018-07-04 02:13] VITALS: BP 110/74; PULSE 86; RESP 20; O2SAT 97
--- NOTE | 2018-07-04 02:13 | ED.RN ---
THIS NURSE REVIEWED D/C INSTRUCTIONS WITH PT. PT VERBALIZED UNDERSTANDING OF INSTRUCTIONS. IV D/C. IV CATHETER INTACT. PT TOLERATED WELL. PT DENIES FURTHER NEEDS OR QUESTIONS AT THIS TIME. PT AMBULATES FROM ROOM WITH ASSISTANCE OF ONE CRUTCH
== END 2018-07-04 02:16 | disposition home or self-care (01) ==
PROVIDERS: Emergency Provider Emergency Medicine
DX: R07.9 Chest pain, unspecified (principal); R06.02 Shortness of breath; Z86.711 Personal history of pulmonary embolism
CPT/HCPCS: 71045; 80048; 83880; 84484; 85025; 85610; 85730; 93005; 99284; A4216

== ENCOUNTER 2018-07-31 16:49 | Emergency (ER) | payer OTHER, SELFPAY ==
[2018-07-31 16:50] VITALS: BP 151/106; PULSE 90; RESP 16; TEMP 36.2; O2SAT 99; BMI 29.9
[2018-07-31 19:31] VITALS: BP 128/115; PULSE 90; RESP 16; O2SAT 97
--- NOTE | 2018-07-31 20:18 | ED.VISSUMM ---
- ER Visit Summary Date of Service: 07/31/18 Chief Complaint: Left lower leg swelling History of Present Illness: The patient is a 48 F history of recent left ankle fracture. Developed DVTs. And a PE. Was placed on Xarelto which she is currently on. Noticed in the last day or so increased swelling in her left leg. No chest pain. No shortness of breath. No hemoptysis. She is taking her Xarelto as prescribed. She has an appointment next several days with a blind cleaner to be worked up for hypercoagulable disorder. Physical Examination: Very well-appearing middle-aged female. Vital signs are stable afebrile. Pulse ox 97% room air no hypoxia. No distress. H EENT exam unremarkable. Neck nontender. Lungs clear to auscultation bilaterally. Heart regular rhythm no murmur. Abdomen soft and. Normal bowel sounds no peritoneal signs. Patient is moving all 4 extremities. She has trace edema on her mid calf to lower left leg. She has no thigh tenderness or edema. Left foot is neurovascular intact. Palpable DP pulse. She is able to wiggle her toes. Warm to the touch. Normal cap refill. Neurologically she is awake and alert. Test Results: None Emergency Department Course and Treatment: I long discussion the patient. She will continue her Xarelto. She will elevate her leg. There is really no reason at this time to do a repeat ultrasound she has had recent clots and may have trouble with swelling. Even if she had a new clot to be nothing we would do at this time. I told her she started getting swelling above her knee or trouble breathing or chest pain to return. She is comfortable with the plan. Treatment Plan: Continue her Xarelto. Follow-up with her blind cleaner. Disposition: Discharge Impression: Left lower leg swelling History of DVT and PE currently anticoagulated on Xarelto This note was generated with natue dictation software. It may contain incorrect words, spelling, and punctuation that were not noted in review of the chart prior to signing ED Disposition - Plan for ED Patient: Chief Complaint: Edema Referrals: [facility] Doctor,Out of [Primary Care Provider] -
--- NOTE | 2018-07-31 20:23 | ED.DCSUM_ITS ---
- ER Visit Summary Date of Service: 07/31/18 Chief Complaint: Left lower leg swelling History of Present Illness: The patient is a 48 F history of recent left ankle fracture. Developed DVTs. And a PE. Was placed on Xarelto which she is currently on. Noticed in the last day or so increased swelling in her left leg. No chest pain. No shortness of breath. No hemoptysis. She is taking her Xarelto as prescribed. She has an appointment next several days with a city editor to be worked up for hypercoagulable disorder. Physical Examination: Very well-appearing middle-aged female. Vital signs are stable afebrile. Pulse ox 97% room air no hypoxia. No distress. H EENT exam unremarkable. Neck nontender. Lungs clear to auscultation bilaterally. Heart regular rhythm no murmur. Abdomen soft and. Normal bowel sounds no peritoneal signs. Patient is moving all 4 extremities. She has trace edema on her mid calf to lower left leg. She has no thigh tenderness or edema. Left foot is neurovascular intact. Palpable DP pulse. She is able to wiggle her toes. Warm to the touch. Normal cap refill. Neurologically she is awake and alert. Test Results: None Emergency Department Course and Treatment: I long discussion the patient. She will continue her Xarelto. She will elevate her leg. There is really no reason at this time to do a repeat ultrasound she has had recent clots and may have trouble with swelling. Even if she had a new clot to be nothing we would do at this time. I told her she started getting swelling above her knee or trouble breathing or chest pain to return. She is comfortable with the plan. Treatment Plan: Continue her Xarelto. Follow-up with her city editor. Disposition: Discharge Impression: Left lower leg swelling History of DVT and PE currently anticoagulated on Xarelto This note was generated with [employer] dictation software. It may contain incorrect words, spelling, and punctuation that were not noted in review of the chart prior to signing ED Disposition - Plan for ED Patient: Chief Complaint: Edema Referrals: [facility] Doctor,Out of [Primary Care Provider] -
--- NOTE | 2018-07-31 20:23 | ED.DEP ---
ED Disposition - Plan for ED Patient: Disposition: Home or Assisted Living Chief Complaint: Edema Instructions: ED Leg Swelling Unilateral Referrals: [facility] Doctor,Out of [Primary Care Provider] - Keep Ruddy appointment Additional Instructions: Elevate your leg to decrease swelling. Tent hose or compression stockings. Follow-up with your clinical psychology teacher. Continue your Xarelto
[2018-07-31 20:30] VITALS: RESP 16
--- NOTE | 2018-07-31 20:30 | ED.RN ---
PT VERBALIZED UNDERSTANDING OF D/C INSTRUCTIONS AND HOME CARE. STATES NO FURTHER QUESTIONS AT THIS TIME.
== END 2018-07-31 20:31 | disposition home or self-care (01) ==
PROVIDERS: Emergency Provider Emergency Medicine
DX: M79.89 Other specified soft tissue disorders (principal); Z79.01 Long term (current) use of anticoagulants; Z86.711 Personal history of pulmonary embolism; Z86.718 Personal history of other venous thrombosis and embolism
CPT/HCPCS: 99282; A4216

== ENCOUNTER → 2018-08-03 13:36 | Outpatient (CLI) | payer OTHER, SELFPAY ==
[2018-07-31 16:50] VITALS: BMI 29.9
--- NOTE | 2018-08-03 13:41 | VDLE_ITS ---
Reason For Study: Hx DVT and PE RIGHT LEFT CFV is compressible, spontaneous, phasic, GSV is normal. competent and demonstrates normal CFV is compressible, spontaneous, phasic, augmentation. competent, and demonstrates normal Procedure augmentation. Exam performed in department. FV is compressible, spontaneous, phasic, The exam was diagnostic. competent and demonstrates normal A preliminary report was called and/or faxed augmentation. to Dr. Molina. Pop V is dilated and noncompressible with no flow. T/P Trunk, Peroneal, Soleus, and SSV are dilated and noncompressible. PTV are partially compressible with vein wall thickening noted. <> Interpretation Summary Acute deep vein thrombosis is noted in the left popliteal vein. Acute deep vein thrombosis is noted in the left tibio-peroneal trunk. Acute deep vein thrombosis is noted in the left peroneal vein. Acute deep vein thrombosis is noted in the left soleus vein. Chronic venous changes are noted in the left posterior tibial vein, which is partially compressible and demonstrates vein wall thickening. The left common femoral vein and femoral vein are patent, compressible, and competent. The left greater saphenous vein appears patent and compressible segmentally. Acute superficial thrombophlebitis is noted in the left small saphenous vein. Ordering Physician: Kristen Molina Performed By: Severino Briceño RVT
--- NOTE | 2018-08-03 14:12 | RAD_ITS ---
STUDY: X-RAY CHEST REASON FOR EXAM: Female, 48 years old. Pleuritic chest pain TECHNIQUE: PA and lateral views of the chest. COMPARISON: 07/04/2018 FINDINGS: The lungs are clear and expanded. There is no demonstrated pleural abnormality. Normal size heart. Normal mediastinum and joshua. Normal visualized pulmonary arteries. Normal visualized aortic arch and descending thoracic aorta. Normal visualized thoracic spine. Normal visualized ribs, clavicles, and shoulders. There is no demonstrated abnormality of the visualized soft tissue structures of the upper abdomen. RAD/Chest PA and Lateral IMPRESSION: Normal x-ray examination of the chest. Electronically Signed: Antonio Dillard MD at 15:09 EST , Service support ,
== END ==
PROVIDERS: Referring Provider Internal Medicine Hematology & Oncology; Visit Provider Internal Medicine Hematology & Oncology
DX: R07.1 Chest pain on breathing (principal); Z86.718 Personal history of other venous thrombosis and embolism; Z86.711 Personal history of pulmonary embolism
CPT/HCPCS: 71046; 93971

== ENCOUNTER → 2018-08-21 10:21 | Outpatient (CLI) | payer OTHER, SELFPAY ==
[2018-07-31 16:50] VITALS: BMI 29.9
[2018-08-21 10:37] LABS: International Normalized Ratio 3.3; Prothrombin Time (Protime)PT. 33.7 SECONDS (11.7-14.9)
== END ==
PROVIDERS: Visit Provider Internal Medicine Hematology & Oncology
DX: I26.92 Saddle embolus of pulmonary artery without acute cor pulmonale (principal)
CPT/HCPCS: 85610

== ENCOUNTER → 2018-08-23 09:09 | Outpatient (CLI) | payer OTHER, SELFPAY ==
[2018-07-31 16:50] VITALS: BMI 29.9
[2018-08-23 09:34] LABS: International Normalized Ratio 2.2; Prothrombin Time (Protime)PT. 24.7 SECONDS (11.7-14.9)
== END ==
PROVIDERS: Referring Provider Internal Medicine Hematology & Oncology; Visit Provider Internal Medicine Hematology & Oncology
DX: I26.92 Saddle embolus of pulmonary artery without acute cor pulmonale (principal)
CPT/HCPCS: 85610

== ENCOUNTER → 2018-09-04 08:31 | Outpatient (CLI) | payer OTHER, SELFPAY ==
[2018-09-04 09:05] LABS: International Normalized Ratio 3.4; Prothrombin Time (Protime)PT. 34.7 SECONDS (11.7-14.9)
== END ==
PROVIDERS: Referring Provider Internal Medicine Hematology & Oncology; Visit Provider Internal Medicine Hematology & Oncology
DX: I26.92 Saddle embolus of pulmonary artery without acute cor pulmonale (principal); I82.4Y2 Acute embolism and thrombosis of unspecified deep veins of left proximal lower extremity
CPT/HCPCS: 85610

== ENCOUNTER → 2018-09-11 09:42 | Outpatient (CLI) | payer OTHER, SELFPAY ==
[2018-09-11 10:07] LABS: International Normalized Ratio 3.3; Prothrombin Time (Protime)PT. 33.5 SECONDS (11.7-14.9)
== END ==
PROVIDERS: Referring Provider Internal Medicine Hematology & Oncology; Visit Provider Internal Medicine Hematology & Oncology
DX: I26.92 Saddle embolus of pulmonary artery without acute cor pulmonale (principal); I82.4Y2 Acute embolism and thrombosis of unspecified deep veins of left proximal lower extremity
CPT/HCPCS: 85610

== ENCOUNTER → 2018-10-09 12:44 | Outpatient (CLI) | payer OTHER, SELFPAY ==
[2018-10-09 13:19] LABS: International Normalized Ratio 2.3; Prothrombin Time (Protime)PT. 25.7 SECONDS (11.7-14.9)
== END ==
PROVIDERS: Referring Provider Internal Medicine Hematology & Oncology; Visit Provider Internal Medicine Hematology & Oncology
DX: I26.92 Saddle embolus of pulmonary artery without acute cor pulmonale (principal); I82.4Y2 Acute embolism and thrombosis of unspecified deep veins of left proximal lower extremity
CPT/HCPCS: 85610

== ENCOUNTER → 2022-04-28 | Outpatient (CLI) | payer OTHER, SELFPAY ==
[2022-04-28 18:03] LABS: Absolute Neutrophil Count 6.1 X10^3/uL (2.0-7.7); Basophil# 0.03 X10^3/uL; Basophil% 0.3 % (0-1); Eosinophil# 0.07 X10^3/uL; Eosinophils% 0.7 % (0-5); Hematocrit 40.9 % (37-47); Hemoglobin 13.2 g/dL (12.0-15.0); Lymphocyte % 33.1 % (19-41); Mean Corp Hgb Conc 32.3 g/dL (32-36); Mean Corpuscular Hgb 30.8 pg (27.0-32.0); Mean Corpuscular Volume 95.3 fL (81-99); Mean Platelet Vol. 9.2 fl (6.2-12.0); Monocyte# 0.65 X10^3/uL; Monocyte% 6.3 % (0-10); NRBC Flagged by Analyzer 0 % (0-5); Neutrophil # 6.08 X10^3/uL (2.7-7.7); Neutrophil % 59.2 % (47-70); Platelet Count 316 K/mm3 (150-450); RBC Distribution Width SD 49.1 fl (35.1-43.9); Red Blood Count 4.29 M/mm3 (4.2-5.4); White Blood Count 10.3 K/mm3 (4.4-11.0)
[2022-04-28 18:38] LABS: Anion Gap 5 (5-15); BUN 15 mg/dL (7-18); BUN/Creat Ratio 18.2 RATIO (10-20); Calcium,Total 9.9 mg/dL (8.5-10.1); Chloride 106 mmol/L (98-107); Creatinine, Serum 0.82 mg/dL (0.55-1.02); EST Glomerular Filtration Rate 78 mL/min (>60); Est Glom Filt Rate - Afr Amer 94 mL/min (>60); Ferritin 126 ng/mL (8-252); Glucose 90 mg/dL (74-106); Potassium 4.4 mmol/L (3.5-5.1); Sodium Level 141 mmol/L (136-145); T4 Free Direct 0.92 ng/dL (0.76-1.46)
[2022-05-02 11:20] LABS: Vitamin D 1,25-Dihydroxy 31.4 pg/mL (24.8-81.5)
[2022-05-02 11:22] LABS: Zinc, Plasma or Serum 93 ug/dL (44-115)
== END | disposition home or self-care (01) ==
PROVIDERS: PCP Family Medicine; Referring Provider Dermatology; Visit Provider Dermatology
DX: L65.0 Telogen effluvium (principal)
CPT/HCPCS: 36415; 80048; 82306; 82652; 82728; 84439; 84443; 84630; 85025

== ENCOUNTER → 2024-05-01 | Outpatient (CLI) | payer OTHER, SELFPAY ==
[2024-05-01 17:47] LABS: Absolute Lymphocyte Count 2.98 X10^3/uL (0.83-4.51); Absolute Neutrophil Count 4.6 X10^3/uL (2.0-7.7); Basophil# 0.02 X10^3/uL; Basophil% 0.2 % (0-1); Eosinophil# 0.11 X10^3/uL; Eosinophils% 1.3 % (0-5); Hematocrit 38.6 % (37-47); Hemoglobin 12.7 g/dL (12.0-15.0); Lymphocyte # 2.98 X10^3/ul (0.83-4.51); Lymphocyte % 35.7 % (19-41); Mean Corp Hgb Conc 32.9 g/dL (32-36); Mean Corpuscular Hgb 30.8 pg (27.0-32.0); Mean Corpuscular Volume 93.5 fL (81-99); Mean Platelet Vol. 9.6 fl (6.2-12.0); Monocyte# 0.66 X10^3/uL; Monocyte% 7.9 % (0-10); NRBC Flagged by Analyzer 0 % (0-5); Neutrophil # 4.55 X10^3/uL (2.7-7.7); Neutrophil % 54.7 % (47-70); Platelet Count 269 K/mm3 (150-450); RBC Distribution Width SD 48.4 fl (35.1-43.9); Red Blood Count 4.13 M/mm3 (4.2-5.4); White Blood Count 8.3 K/mm3 (4.4-11.0)
[2024-05-01 18:41] LABS: ALB/GLOB Ratio 0.8 RATIO (0.9-2.4); AST(SGOT) 24 U/L (15-37); Alanine Aminotransfer ALT/SGPT 31 U/L (13-56); Albumin, Serum 3.9 g/dL (3.2-5.0); Alkaline Phosphatase 94 U/L (45-117); Anion Gap 4 (5-15); BUN 18 mg/dL (7-18); BUN/Creat Ratio 24.5 RATIO (10-20); Calcium,Total 9.9 mg/dL (8.5-10.1); Chloride 101 mmol/L (98-107); Creatinine, Serum 0.73 mg/dL (0.55-1.02); EST Glomerular Filtration Rate 88 mL/min (>60); Est Glom Filt Rate - Afr Amer 107 mL/min (>60); Globulin 4.7 g/dL (2.2-4.2); Glucose 84 mg/dL (74-106); Potassium 3.9 mmol/L (3.5-5.1); Protein, Total 8.6 g/dL (6.4-8.2); Sodium Level 135 mmol/L (136-145)
[2024-05-03 16:09] LABS: Anti-Cardiolipin Ab, IgA, Qn < 9 APL U/mL (0-11); Anti-Cardiolipin Ab, IgG, Qn < 9 GPL U/mL (0-14); Anti-Cardiolipin Ab, IgM, Qn < 9 MPL U/mL (0-12)
[2024-05-04 16:09] LABS: Anti-Nuclear Antibody Test Positive (.); Anti-dsDNA Ab 4 IU/mL (0-9)
== END | disposition home or self-care (01) ==
LOC: MTLAB 14:52
PROVIDERS: PCP Family Medicine; Referring Provider Dermatology; Visit Provider Dermatology
DX: L66.1 Lichen planopilaris (principal); L65.0 Telogen effluvium; Z13.0 Encounter for screening for diseases of the blood and blood-forming organs and certain disorders involving the immune mechanism
CPT/HCPCS: 36415; 80053; 85025; 86038; 86147; 86225